=== PATIENT | female | born 1985 | race Caucasian/White ===

== ENCOUNTER 2017-02-20 17:03 | Inpatient (IN) ==
[2017-02-20] MEDS ORDERED: ACETAMINOPHEN 500 MG TABLET PO PRN (17:21)
[2017-02-20] MEDS ORDERED: METHYLERGONOVINE 0.2 MG/ML INJECTION IM PRN (17:21)
[2017-02-20] MEDS ORDERED: MAG-AL + SIM ORAL LIQUID 30ml PO PRN (17:21)
[2017-02-20] MEDS ORDERED: LIDOCAINE 1% (10mg/ml) 2mL INJ PF SDV ID PRN (17:21)
[2017-02-20] MEDS ORDERED: CALCIUM CARBONATE Chewable 500mg TABLET PO PRN (17:21)
[2017-02-20] MEDS ORDERED: CARBOPROST 250 MCG/ML INJECTION IM PRN (17:21)
[2017-02-20] MEDS: LR 1,000 ML IV PRN ×2 (17:40→20:50)
[2017-02-20] MEDS ORDERED: ONDANSETRON 4 MG/2 ML INJECTION IVP PRN (18:17)
[2017-02-20] MEDS ORDERED: NALOXONE 0.4 MG/ML INJECTION IVP PRN (18:17)
[2017-02-20] MEDS ORDERED: ROPIVACAINE 1% 10MG/ML INJ 200 MG, SUFentanil 50 MCG in NS 100 ML EPI PRN (18:17)
[2017-02-20] MEDS ORDERED: DiphenhydrAMINE 50 MG/ML INJECTION IVP PRN (18:17)
--- NOTE | 2017-02-20 18:17 | Anesthesia Preoperative Report ---
Anesthesia Epidural/Spinal Rec - Date and Time Date: 02/20/17 Preoperative Diagnosis: Procedure: Labor Epidural Plan: Epidural - Vital Signs /Para: P:0 - Medictaions & Allergies Inpatient Medications: Current Medications Acetaminophen (Tylenol) 500 - 1,000 mg PO Q4H PRN PRN Reason: Pain Al Hydroxide/Mg Hydroxide (Maalox Plus) 30 ml PO Q3H PRN PRN Reason: Indigestion Calcium Carbonate (Tums) 500 - 1,000 mg PO Q2H PRN PRN Reason: Indigestion Carboprost Tromethamine (Hemabate) 250 mcg IM O PRN PRN Reason: .Downtime Lactated Ringer's (Lactated Ringers) 1,000 mls @ 999 mls/hr IV .Q1H1M PRN Last Admin: 02/20/17 17:40 Dose: 999 mls/hr Lidocaine HCl (Xylocaine-Mpf 1% Vial) 0.2 mg ID O PRN PRN Reason: IV Start Methylergonovine Maleate (Methergine) 0.2 mg IM O PRN Misoprostol (Cytotec) 800 mcg MO ONCE PRN Allergies/Adverse Reactions: Allergies Allergy/AdvReac Type Severity Reaction Status Date / Time No Known Drug Allergies Allergy Unknown Verified 02/20/17 06:27 - Home Medications Home Medications: Home Medications Medication Instructions Recorded Confirmed Type Iron 1 tab PO DAILY 02/11/17 History Vitamins Tablet 1 tab PO DAILY 02/11/17 History - Medical History Neuro/Musculoskeletal: Reports: Seizures (hx of as adolescent; no meds since age 19) Other History: Reports: Now - Surgical History Anesthesia Reactions: None Hx Family Anesthesia Reaction: No History of Motion Sickness: No - Social History Smoking Status: Former smoker Second Hand Exposure: No Quit Date: 11/22/13 Substance Use Type: does not use Alcohol Intake: never Alcohol Intake Frequency: does not drink Hx Chewing Tobacco Use: No - Pertinent Findings Lab Data: CBC and BMP 02/20/17 17:37 EKG Rhythm: Normal Sinus Rhythm - Physical Exam Respiratory Exam: lungs clear Cardiovascular Exam: regular rate and rhythm, no murmur - Airway Assessment Mallampati Score: II TMD: 3 Fingerbreadths Neck Extension: good Overall Assessment: no airway concerns - ASA ASA Score: 2 - Discussion Discussion: Discussed risks/options/alternatives of anesthesia and questions answered. Patient consents. Nursing pain assessment noted. Anesthesia Discussion: spouse Attestation Statement: Prior to the delivery of any anesthetic medication, I examined the patient, developed the plan, obtained the patient's consent and discussed the risk and benefits of the procedure with the patient/guardian.
[2017-02-20] MEDS: D5LR 1,000 ML IV SCH (18:18)
[2017-02-21 00:01] VITALS: BMI 29.5
[2017-02-21] MEDS: D5LR 1,000 ML IV SCH (02:20)
--- NOTE | 2017-02-21 02:59 | OB/GYN Progress Note ---
- Pain Control Pain control: Epidural - Pelvic Exam Dilation (cm): 8 Effacement (%): 100 station: +1 Amniotic membrane status: Ruptured - Contractions Monitor mode: Internal Contraction pattern: Regular Contraction intensity: Strong/Firm - Status status: Category ll Comments: Deep variable decelaration with every contraction, lasting about 30-60 seconds, good return to baseline. - Assessment and Plan Assessment: active labor (IUPC placed amnioinfusion started, DFM placed. OR team and Dr. Obregon Notified and in route. Discussed possible need for assisted vaginal delivery VS PLTCS. Discussed R/B/A to both procedures including infection, Injury to bowel, bladder, , Bleeding with need for transfusion and . Qeustions elicited and answered. )
[2017-02-21] MEDS ORDERED: LIDOCAINE 2%/EPI 1:200,000 20ml SDV PF ONE (04:15)
[2017-02-21] MEDS ORDERED: MORPHINE SULFATE PF 5mg/10ml INJ (Duramorph) ONE (04:18)
[2017-02-21] MEDS ORDERED: DiphenhydrAMINE 25 MG CAPSULE PO PRN (04:42)
[2017-02-21] MEDS ORDERED: HYDROCORTISONE 2.5% CREAM 30gm RECTALLY PRN (04:42)
[2017-02-21] MEDS ORDERED: MEASLES-MUMPS-RUBELLA VACCINE 0.5ml INJECTION SQ ONE (04:42)
[2017-02-21] MEDS ORDERED: HYDROCODONE/APAP 5mg/325mg TABLET PO PRN (04:42)
[2017-02-21] MEDS ORDERED: CALCIUM CARBONATE Chewable 500mg TABLET PO PRN (04:42)
[2017-02-21] MEDS ORDERED: MAG-AL + SIM ORAL LIQUID 30ml PO PRN (04:42)
[2017-02-21] MEDS ORDERED: OXYTOCIN DRIP 30 UNIT/500 ML ML IV PRN (04:42)
[2017-02-21] MEDS ORDERED: ACETAMINOPHEN 500 MG TABLET PO PRN (04:42)
[2017-02-21] MEDS ORDERED: OXYTOCIN DRIP 30 UNIT/500 ML ML IV SCH (04:45)
--- NOTE | 2017-02-21 04:54 | OB/GYN Procedure Note ---
Delivery date: 02/21/17 Procedure: Procedures Operation Date: 02/21/17 03:10 <No data on this case meets the specified criteria> Intrapartal events: Abruptio Placenta Induction method: none Delivery augmentation: rupture of membranes Delivery monitor: external FHT, external uterine, internal FHT, internal uterine Route of delivery: Laceration description: Vaginal - 1st Degree Delivery repair: chromic Estimated blood loss (mL): 200 Anesthesia type: Epidural Disposition: floor Complications: multiple variable decelerations - [place] Baby 1 gender: Male presentation: Vertex Placenta delivery description: Spontaneous cord vessel description: 3 Vessels at 1 minute: 2 at 5 minutes: 6 (10 min 7, Dr. Randall present 2min post delivery)
[2017-02-21] MEDS ORDERED: NALOXONE 2 MG/2 ML INJECTION PFS IVP PRN (05:15)
[2017-02-21] MEDS: IBUPROFEN 800 MG TABLET PO PRN ×2 (07:36→16:35)
--- NOTE | 2017-02-21 10:38 | Anesthesia Postoperative Note ---
- Date and Time Date: 02/21/17 Time: 10:37 - Status Patient Participated in Evaluation: Patient Participated in Person Vital Signs: Temperature 97.6 F 02/21/17 08:30 Pulse Rate 105 H 02/21/17 08:30 Respiratory Rate 32 H 02/21/17 08:30 Pulse Oximetry 96 02/21/17 08:30 Respiratory Function: Airway Patent Cardiovascular Function: Regular Pulse EKG: Sinus Rhythm Mental Status: Alert and Oriented Pain Intensity: 2 Hydration: Taking PO Fluids Complications During Recover: None Apparent Post Anesthesia Care Notes: Full recovery from Epidural has occurred. pt up and walking. no questions or concerns at this time. - Follow-Up Instructions Instructions: Per Surgeon
--- NOTE | 2017-02-21 11:12 | Procedure Note ---
DATE OF DELIVERY 02/21/2017 PROCEDURE Vaginal delivery. The patient originally presented to Labor & Delivery after being seen in the office and was noted to be matt and cervix was 1 cm, 100%, and she was - 2 station with regular painful contractions. She was then sent to [facility] where she progressed slowly through the first stage of labor and change at cervical exam was approximately every 2 hours apart from 1 to 3 to 4 to 5 to 6. At 0300 hours she was noted to be 6 cm, 100% and -1 station. AROM was performed at this time. A small amount of port wine fluid was received back and at this time heart rate category was 1. Over the next hour patient had occasional variable deceleration but overall category 2 strip. Patient later developed multiple repetitive variable decelerations that were from baseline of 130 down to the 80s with a good return to baseline. Patient was noted to be 8 cm at this time and 0 station. IUPC and DFM was placed and amniofusion was started. Variable decelerations resolved for a while and then returned. At this time the OR staff was contacted along with the speech assistant surgeon and Anesthesia. The patient was moved to the operating room and once back in the operating room and on the OR table the patient was noted to be complete and +1. At this time the patient started pushing with resolution of variables except for with an occasional contraction. The patient continued to push and baby descended through the pelvis. The patient had a normal spontaneous vaginal delivery of a live male in the CARSON position over intact perineum with epidural anesthesia. There was no meconium noted but port wine fluid was noted at AROM. A nuchal cord that was loose x 1 was noted. Spontaneous delivery of the placenta with a 3-vessel cord. The patient had bilateral first-degree labial lacerations that were repaired with 3-0 chromic and a first-degree midline vaginal that was repaired with 3-0 chromic in a [id number] suture. Estimated blood loss was 300 cc. The , after delivery, cried at perineum. Nares and nose and mouth were suctioned with bulb suction and placed on the mother's chest. Cord was clamped and cut. The infant then had difficulty with transition and was taken to the warmer and the textbook associate was called to the room. Apgars were noted to be 2/6 /7. Cord gases were collected and sent. Placenta was sent to pathology. weight was 2972 g. [facility]
--- NOTE | 2017-02-21 11:55 | OB/GYN Progress Note ---
OB-PP Progress Note - General PPD0 Maternal Group B Strep: Negative Maternal blood type: A+ Maternal Rubella Status: Not Immune - Subjective Date: 02/21/17 Lochia: Minimal Pain: controlled Voiding: voiding Nausea or Vomiting Present: No - Objective Vital Signs: Last Vital Signs Temp 97.6 F 02/21/17 08:30 Pulse 105 H 02/21/17 08:30 Resp 32 H 02/21/17 08:30 Pulse Ox 96 02/21/17 08:30 Laboratory: Laboratory Results - last 24 hr 02/20/17 02/20/17 02/21/17 17:37 17:37 04:27 WBC 13.0 H RBC 3.77 L Hgb 12.1 Hct 35.9 L MCV 95.2 MCH 32.1 MCHC 33.7 RDW Std Deviation 44.9 Plt Count 258 MPV 9.4 Cord ABG pH 7.250 Cord ABG pCO2 52 Cord ABG pO2 17 Cord ABG HCO3 23 Cord ABG Total CO2 24.4 Cord ABG Base Excess -4.8 Cord ABG O2 Sat 17.0 Cord VBG pH Cord VBG pCO2 Cord VBG pO2 Cord VBG HCO3 Cord VBG Total CO2 Cord VBG Base Excess Cord VBG O2 Sat Blood Type A Positive Antibody Screen Negative 02/21/17 04:27 WBC RBC Hgb Hct MCV MCH MCHC RDW Std Deviation Plt Count MPV Cord ABG pH Cord ABG pCO2 Cord ABG pO2 Cord ABG HCO3 Cord ABG Total CO2 Cord ABG Base Excess Cord ABG O2 Sat Cord VBG pH 7.330 Cord VBG pCO2 40 Cord VBG pO2 24 Cord VBG HCO3 21 Cord VBG Total CO2 22.3 Cord VBG Base Excess -4.5 Cord VBG O2 Sat 37.0 Blood Type Antibody Screen - Assessment Assessment: SP, - Plan Plan: routine care
[2017-02-21] MEDS: DOCUSATE CALCIUM 240 MG CAPSULE PO SCH (12:36)
[2017-02-22] MEDS: IBUPROFEN 800 MG TABLET PO PRN ×2 (04:06→12:01)
[2017-02-22] MEDS: DOCUSATE CALCIUM 240 MG CAPSULE PO SCH (12:01)
[2017-02-22 12:07] VITALS: BP 105/61; PULSE 88; RESP 16; TEMP 98.5; O2SAT 96
== END 2017-02-22 13:34 | disposition home or self-care (01) | DRG 774 ==
LOC: MC 17:03
PROVIDERS: ADMIT Obstetrics & Gynecology; ATTEND Obstetrics & Gynecology